=== PATIENT | male | born 1950 | race Caucasian/White ===

== ENCOUNTER 2025-02-18 11:49 | Inpatient (IN) ==
[2025-02-18] MEDS ORDERED: IOPAMIDOL 100 ML BOTTLE IV ONE (11:50)
[2025-02-18 12:21] LABS: Basophils # (Auto) 0.06 K/mcL (0.00-0.30); Basophils % (Auto) 0.7 % (0.0-2.0); Eosinophils # (Auto) 0.16 K/mcL (0.00-0.70); Eosinophils % (Auto) 1.8 % (0.0-7.0); Hematocrit 44.0 % (40.1-51.0); Hemoglobin 14.5 g/dL (13.7-17.5); Lymphocytes # (Auto) 2.07 K/mcL (1.50-4.80); Lymphocytes % (Auto) 22.8 % (15.5-49.0); Mean Corpuscular HGB Conc 33.0 g/dL (31.0-36.0); Monocytes # (Auto) 1.02 K/mcL (0.10-0.90); Monocytes % (Auto) 11.2 % (1.0-12.0); Neutrophils % (Auto) 63.2 % (38.0-78.0); Platelet Count 230 K/mcL (140-440); RBC 4.92 M/mcL (4.63-6.08); WBC 9.1 K/mcL (4.5-11.0)
[2025-02-18 12:32] LABS: Partial Thromboplastin Time 31.1 sec (20.0-37.0)
[2025-02-18 12:33] LABS: INR 1.0 (0.9-1.1); Prothrombin Time 14.1 sec (11.9-14.5)
[2025-02-18 12:36] LABS: ALT/SGPT 23 U/L (<40); AST/SGOT 18 U/L (<40); Albumin 3.8 gm/dL (3.2-5.2); Albumin/Globulin Ratio 0.9 (1.0-2.3); Alkaline Phosphatase 107 U/L (39-117); Anion Gap 12.0 (8.0-16.0); Bilirubin,Total 0.7 mg/dL (0.1-1.0); Blood Urea Nitrogen 14 mg/dL (8-23); Calcium 9.5 mg/dL (8.6-10.4); Carbon Dioxide 24 mmol/L (22-30); Chloride 99 mmol/L (96-108); Creatine Kinase 75 U/L (24-195); Globulin 4.1 gm/dL (2.2-3.7); Glucose 261 mg/dL (70-105); Potassium 4.5 mmol/L (3.3-5.1); Sodium 135 mmol/L (133-145)
[2025-02-18] MEDS: ASPIRIN 81 MG TAB.CHEW CHEWED ONE (13:47)
[2025-02-18] MEDS: ATORVASTATIN 40 MG TABLET PO ONE (13:47)
[2025-02-18 14:14] LABS: Bacteria,Urine 0 /hpf (0); Bilirubin,Urine NEGATIVE (Negative); Color,Urine YELLOW; Glucose,Urine (UA) >=1000 mg/dL (Negative); Ketones,Urine TRACE mg/dL (Negative); Leukocyte Esterase,Urine NEGATIVE /uL (Negative); PH,Urine 6.0 (5.0-9.0); Protein,Urine TRACE mg/dL (Negative); Specific Gravity,Urine 1.025 (1.000-1.035); Urobilinogen,Urine 0.2 mg/dL
[2025-02-18] MEDS ORDERED: MAGNESIUM SULFATE 2 GM/50 ML BAG IV PRN (16:30)
[2025-02-18] MEDS ORDERED: IPRATROPIUM/ALBUTEROL 3 ML AMPUL.NEB NEB PRN (16:30)
[2025-02-18] MEDS ORDERED: DEXTROSE 50% 50 ML VIAL IV PRN (16:30)
[2025-02-18] MEDS ORDERED: DEXTROSE 31 GM ORAL.SUSP PO PRN (16:30)
[2025-02-18] MEDS ORDERED: POTASSIUM CHLORIDE 40 MEQ in DEXTROSE 5% IN WATER 500 ML IV PRN (16:30)
[2025-02-18] MEDS ORDERED: SENNOSIDES 1 TABLET PO PRN (16:30)
[2025-02-18] MEDS ORDERED: POTASSIUM CHLORIDE 20 MEQ TABLET PO PRN ×2 (16:30)
[2025-02-18] MEDS ORDERED: ACETAMINOPHEN 325 MG TABLET PO PRN (16:30)
[2025-02-18] MEDS ORDERED: ONDANSETRON 4 MG/2 ML VIAL IV PRN (16:30)
[2025-02-18] MEDS ORDERED: METOCLOPRAMIDE 10 MG/2 ML VIAL IV PRN (16:30)
[2025-02-18] MEDS: 0.9 % SODIUM CHLORIDE 1,000 ML IV SCH (16:48)
[2025-02-18 16:57] LABS: HDL Cholesterol 42 mg/dL (>40); LDL Cholesterol,Calculated 135 mg/dL (<100); Triglycerides 113 mg/dL (<150)
[2025-02-18 17:08] LABS: Estimated Average Glucose(eAG) 341 mg/dL; Hemoglobin A1C 13.5 % Hgb (4.0-6.0)
[2025-02-18] MEDS: INSULIN LISPRO 1 UNIT/0.01 ML UNIT SQ SCH (17:34)
[2025-02-18] MEDS: CLOPIDOGREL 75 MG TABLET PO SCH (17:35)
[2025-02-18] MEDS: DOCUSATE SODIUM 100 MG CAPSULE PO SCH (20:32)
[2025-02-19 06:19] LABS: ALT/SGPT 18 U/L (<40); AST/SGOT 16 U/L (<40); Albumin 3.1 gm/dL (3.2-5.2); Albumin/Globulin Ratio 0.9 (1.0-2.3); Alkaline Phosphatase 84 U/L (39-117); Anion Gap 9.0 (8.0-16.0); Bilirubin,Direct 0.3 mg/dL (<0.3); Bilirubin,Total 0.7 mg/dL (0.1-1.0); Blood Urea Nitrogen 10 mg/dL (8-23); Calcium 8.6 mg/dL (8.6-10.4); Carbon Dioxide 21 mmol/L (22-30); Chloride 104 mmol/L (96-108); Globulin 3.4 gm/dL (2.2-3.7); Glucose 145 mg/dL (70-105); Phosphorous 3.1 mg/dL (2.5-4.5); Potassium 4.0 mmol/L (3.3-5.1); Sodium 134 mmol/L (133-145); Triglycerides 69 mg/dL (<150); Uric Acid 3.5 mg/dL (2.5-8.0)
[2025-02-19] MEDS ORDERED: METOPROLOL TARTRATE 5 MG/5 ML VIAL IV PRN (09:22)
[2025-02-19] MEDS: ASPIRIN 81 MG TAB.CHEW PO SCH (09:58)
[2025-02-19] MEDS: INSULIN GLARGINE, HUMAN 1 UNIT/0.01 ML SQ SCH (09:58)
[2025-02-19] MEDS: APIXABAN 5 MG TABLET PO SCH (10:03)
[2025-02-19] MEDS: ENOXAPARIN 40 MG/0.4 ML SYRINGE SQ SCH (11:15)
[2025-02-19] MEDS: POLYETHYLENE GLYCOL 3350 17 GM PACKET PO PRN (15:42)
[2025-02-19] MEDS: ATORVASTATIN 40 MG TABLET PO SCH (20:53)
[2025-02-20] MEDS: INSULIN GLARGINE, HUMAN 1 UNIT/0.01 ML SQ ONE (09:41)
[2025-02-21] MEDS: INSULIN GLARGINE, HUMAN 1 UNIT/0.01 ML SQ SCH (09:14)
[2025-02-21] MEDS ORDERED: hydrALAZINE 20 MG/ML VIAL IV PRN (18:38)
[2025-02-22] MEDS: FLU VACC TS2025-26(65YR UP)/PF 180 MCG/0.5 ML SYRINGE IM ONE (12:03)
[2025-02-22] MEDS: PNEUMOCOCCAL 23-VAL P-SAC VAC 0.5 ML SYRINGE IM ONE (12:04)
== END 2025-02-22 12:20 | DRG 65 ==
LOC: ICU 11:49 → ED 11:49 → ICU 16:24 → MEDSUR 02-19 17:46
PROVIDERS: ADMIT Internal Medicine; ATTEND Internal Medicine